=== PATIENT | male | born 1990 | race Native Hawaiian/Other Pacific Islander ===

== ENCOUNTER 2020-09-30 17:42 | Emergency (ER) | payer OTHER ==
[~2020-09-30] VITALS: Ht 180.3 cm; Wt 99.8 kg
[2020-09-30 18:59] LABS: PLATELET COUNT 361 K/uL (142-355)
[2020-09-30 19:23] LABS: POTASSIUM 4.1 mmol/L (3.6-5.2)
[2020-09-30 19:48] LABS: PARTIAL THROMBOPLASTIN TIME 26.1 SECONDS (24.5-33.6)
[2020-09-30 20:25] VITALS: BP 112/72; TEMP 99
== END 2020-09-30 20:25 | disposition home or self-care (01) ==
LOC: ED 17:42
PROVIDERS: Family Medicine
DX: L08.89 Other specified local infections of the skin and subcutaneous tissue (principal); L25.9 Unspecified contact dermatitis, unspecified cause; M79.604 Pain in right leg; Z79.2 Long term (current) use of antibiotics
CPT/HCPCS: 36415; 80053; 85027; 85379; 85610; 85730; 96372; 99283; J2930